=== PATIENT | male | born 1995 | race Caucasian/White ===

== ENCOUNTER 2021-05-21 22:18 | Emergency (ER) | payer OTHER ==
[~2021-05-21] VITALS: Ht 172.7 cm; Wt 76.4 kg
[2021-05-21] MEDS ORDERED: ACETAMINOPHEN 500 MG TABLET PO ONE (23:30)
[2021-05-21] MEDS ORDERED: IBUPROFEN 600 MG TABLET PO ONE (23:30)
[2021-05-22 00:14] VITALS: BP 129/68
== END 2021-05-22 00:34 | disposition home or self-care (01) ==
LOC: EMS 22:18
DX: S62.633A Displaced fracture of distal phalanx of left middle finger, initial encounter for closed fracture (principal); S63.611A Unspecified sprain of left index finger, initial encounter; W45.8XXA Other foreign body or object entering through skin, initial encounter; Y93.89 Activity, other specified; Y92.89 Other specified places as the place of occurrence of the external cause; Y99.8 Other external cause status
CPT/HCPCS: 99283